=== PATIENT | female | born 1970 | race Caucasian/White ===

== ENCOUNTER → 2023-05-26 15:00 | Outpatient (BNVA) | payer BC, SELFPAY | PROVIDERS: Visit Provider Nurse Practitioner Women's Health | DX: Z01.419 Encounter for gynecological examination (general) (routine) without abnormal findings (principal); Z11.3 Encounter for screening for infections with a predominantly sexual mode of transmission; N91.2 Amenorrhea, unspecified | CPT/HCPCS: 82670; 83001; 84146; 84439; 84443; 86592; 86803; 87340; 87624; 87806 ==

== ENCOUNTER → 2023-06-25 10:00 | Outpatient (BNVA) | payer BC, SELFPAY | PROVIDERS: Visit Provider Nurse Practitioner Women's Health | DX: N91.2 Amenorrhea, unspecified (principal) | CPT/HCPCS: 84443 ==

== ENCOUNTER 2023-07-12 17:08 | Outpatient (CLI) | payer BC, SELFPAY ==
[2023-07-12 18:12] LABS: Follicle Stimulating Hormone 48.5 mIU/mL; Thyroid Stimulating Hormone 9.03 uIU/mL (0.27-4.20)
== END 2023-07-12 17:09 | disposition home or self-care (01) ==
PROVIDERS: PCP Family Medicine; Visit Provider Obstetrics & Gynecology
DX: R87.610 Atypical squamous cells of undetermined significance on cytologic smear of cervix (ASC-US) (principal); R87.810 Cervical high risk human papillomavirus (HPV) DNA test positive
CPT/HCPCS: 36415; 83001; 84443

== ENCOUNTER → 2023-07-15 13:26 | Outpatient (BNVA) | payer BC, SELFPAY | PROVIDERS: PCP Family Medicine; Visit Provider Obstetrics & Gynecology | DX: Z01.818 Encounter for other preprocedural examination (principal); R87.610 Atypical squamous cells of undetermined significance on cytologic smear of cervix (ASC-US); R87.810 Cervical high risk human papillomavirus (HPV) DNA test positive; B37.31 Acute candidiasis of vulva and vagina | CPT/HCPCS: 81025; 88305 ==

== ENCOUNTER → 2024-02-14 15:50 | Outpatient (BNVA) | payer BC, SELFPAY | PROVIDERS: PCP Family Medicine; Visit Provider Podiatrist Foot & Ankle Surgery | DX: L84 Corns and callosities; M21.621 Bunionette of right foot | CPT/HCPCS: 73630 ==

== ENCOUNTER → 2024-07-17 15:05 | Outpatient (BNVA) | payer BC, SELFPAY | PROVIDERS: PCP Family Medicine; Visit Provider Obstetrics & Gynecology | DX: R87.610 Atypical squamous cells of undetermined significance on cytologic smear of cervix (ASC-US) (principal); R87.810 Cervical high risk human papillomavirus (HPV) DNA test positive | CPT/HCPCS: 87624 ==

== ENCOUNTER → 2024-08-11 12:54 | Outpatient (BNVA) | payer BC, SELFPAY | PROVIDERS: PCP Family Medicine; Visit Provider Obstetrics & Gynecology | DX: R87.619 Unspecified abnormal cytological findings in specimens from cervix uteri (principal) | CPT/HCPCS: 81025; 88305 ==

== ENCOUNTER 2024-09-11 05:40 | Day surgery (SDC) | payer BC, SELFPAY ==
[2024-09-11] VITALS (8 sets, daily range): BP systolic 100–119; BP diastolic 69–89; PULSE 83–94; RESP 14–20; TEMP 36.4–36.8; O2SAT 94–100; BMI 22.8
--- NOTE | 2024-09-11 06:20 | P.ANESASSM_ITS ---
Pre-Anesthetic Assessment Height/Weight: Height 5 ft 2 in Weight 125 lb Temp Pulse Resp BP Pulse Ox O2 Del Method 98.3 F 94 18 107/76 100 Room Air 09/11/24 06:06 09/11/24 06:06 09/11/24 06:06 09/11/24 06:06 09/11/24 06:06 09/11/24 06:06 Preop Diagnosis: Right fot tailor's bunion and hammertoe Operation Date: 09/11/24 07:00 Proposed Procedures p Right foot tailor's bunionectomy(Right) - Kolby Shah DPM s foot fifth digit derotational arthroplasty(Right) - Kolby Shah DPM Was Beta Kishan taken within 24 hours: N/A Was Clonidine taken within 24 hours: N/A Last intake: Intake Last Liquid Date 09/10/24 Last Liquid Time 23:30 Last Solid Date 09/10/24 Last Solid Time 23:30 Social Tobacco and No alcohol Exam alert, oriented x 3, clear to auscultation bilaterally and regular rate & rhythm Airway Submandibular: within normal limits Cervical ROM: within normal limits Mallampati: Class I Dentition: full Anesthetic Plan ASA status: 2 Anesthesia: MAC Other: No prior issues with anesthesia in the past NPO since yesterday History of GERD on omeprazole Occasionally vapes nicotine Hypothyroidism on Synthroid METs greater than 4 Plan for MAC anesthetic with local via surgeon Medications/Allergies Home Medications Medication Instructions Recorded Confirmed Last Taken Type multivitamin 1 tab PO DAILY 05/26/23 09/07/24 09/10/24 History omeprazole 20 mg capsule,delayed 20 mg PO DAILY 05/26/23 09/07/24 09/10/24 History release spironolactone 100 mg tablet 100 mg PO DAILY 05/26/23 09/07/24 09/10/24 History fluoxetine 10 mg capsule (Prozac) 10 mg PO DAILY 02/14/24 09/07/24 09/10/24 History levothyroxine 50 mcg capsule 50 mcg PO DAILY 02/14/24 09/07/24 09/10/24 History Allergies Allergy/AdvReac Type Severity Reaction Status Date / Time No Known Allergies Allergy Verified 09/07/24 14:55 [facility] Anesthesia Medical History Acne No pertinent past medical history neghx: htn, dm, thyroid, dvt/pe PCP: none Surgical History H/O tubal ligation (~2002) History of endometrial ablation at age 34 for heavy menses; she still cycled just not has heavy; performed in [place] Previous section (~1998) Family History Father Hypertension CAD (coronary artery disease) Heart disease Hyperlipidemia Other Diabetes Denies family history of Colon cancer Ovarian cancer Breast cancer Family history of premature coronary artery disease Cancer Uterine cancer Thyroid disease Stroke Social History Smoking and tobacco/nicotine status: former use of tobacco/nicotine Data Anesthesia Cardiac Studies: No Data to Display
[2024-09-11] MEDS: gabapentin 300 mg Capsule PO (06:23)
[2024-09-11] MEDS: sodium chloride 0.9% 1,000 ML 30 ML IV (06:24)
[2024-09-11] MEDS: acetaminophen 1,000 MG/100 ML PIGGYBACK 400 MG IV (06:24)
--- NOTE | 2024-09-11 06:41 | W.PM.OPSUD ---
Surgery/Procedure H&P Update DATE OF PROCEDURE: September 11, 2024 DATE H&P PERFORMED: 08/21/24 H&P UPDATE INFORMATION: I have reviewed H&P completed within last 30 days, I have examined patient prior to procedure, No changes to prior documentation and H&P is in [facility] EMR on date indicated PREOP DIAGNOSIS: Right fot tailor's bunion and hammertoe PLANNED PROCEDURE: Operation Date: 09/11/24 07:00 Proposed Procedures p Right foot tailor's bunionectomy(Right) - Kolby Shah DPM s foot fifth digit derotational arthroplasty(Right) - Kolby Shah DPM
[2024-09-11] MEDS: ceFAZolin 2,000 mg SDV 2000 MG IVP (07:11)
[2024-09-11] MEDS: BUPivacaine 0.5% INJ 30 mL XX (07:36)
--- NOTE | 2024-09-11 08:06 | P.OP_ITS ---
Operative Report Date of procedure: September 11, 2024 Pre-op diagnosis: 1. Right foot tailor's bunion 2. Right foot fifth digit hammertoe Post-op diagnosis: Same Post-op findings: Tailor's bunion and fifth digit hammertoe Procedure done: 1. Right foot tailor's bunionectomy CPT 55130 2. Right foot fifth digit derotational arthroplasty CPT 25370 Implants: 0.045 K wire x 1 Pathology: None Surgeon: Kolby Shah DPM Transverse Abdominal Muscle Nurse: Cholo Estimated blood loss: 2 cc 27 minutes Complications: None Findings: See above Procedure: Patient is a 53-year-old female that has a history of painful right foot tailor's bunion and fifth digit hammertoe. The patient has had the aforementioned chief complaint for some time. Conservative treatment measures have been attempted and the patient has opted for surgical intervention at this time. A lengthy discussion regarding the procedure, including risks and complications has been had with the patient and is noted in the recent clinic note. Written and verbal consent have been obtained. All patient questions have been answered to the patient?s satisfaction. No written or verbal guarantees have been given or implied. The patient has been NPO since midnight. The history has been reviewed and the history and physical is current. The signed consent was confirmed and placed in the patient chart. Patient imaging has been reviewed and is consistent with the diagnosis. Under mild sedation, the patient was brought into the operating room and placed on the table in the supine position. IV antibiotics were given by the anesthesia team as preoperative surgical prophylaxis. IV sedation was then performed by the anesthesiateam. Local field block was performed using 0.5% Marcaine plain. A pneumatic tourniquet was then placed about the right ankle. The operative extremity was then prepped and draped in the usual fashion. The extremity was then elevated and exsanguinated before the tourniquet was inflated to 250 mmHg. After inflation, the following procedure was then performed. Attention was directed to the right foot. A percutaneous stab incision was made to the lateral aspect of the fifth metatarsal at the level of the metatarsal neck. Dissection was carried out on the dorsal and plantar aspect of the fifth metatarsal. Next, under fluoroscopic visualization a bur was used to make an osteotomy through the metatarsal neck. The fifth metatarsal head was then translated medially in the transverse plane. Attention was then directed to the fifth digit proximal interphalangeal joint. An elliptical incision was made overlying the proximal interphalangeal joint. Dissection was carried down to the extensor tendon which was transected transversely to expose the proximal interphalangeal joint. Sagittal bone saw was used to remove the head of the proximal phalanx and was passed from the operative field. The site was irrigated with copious amounts of sterile saline. The tendon was reapproximated using 4-0 Vicryl and skin closure was performed with 4-0 nylon. A 0.045 K wire was then driven into the medullary canal of fifth metatarsal to buttress the medial position of the fifth metatarsal head. The tourniquet was let down good hyperemic response was noted to all digits of the right foot. The incision site was dressed with Xeroform, 4 x 4 gauze, Kerlix, Jag before being placed in a cam boot. The patient tolerated the procedure and anesthesia well and without complication. The patient was transported from the operating room to the recovery room with vital signs stable and vascular status intact to all digits of the right foot. The patient was given both written and verbal instructions to remain weightbearing as tolerated in boot to the operative extremity, to keep dressings/splint clean, dry and intact and to take pain medication as directed. The patient will follow-up in the outpatient setting at their scheduled appointment. The patient was discharged with my personal number and was instructed to call if any questions or issues should arise. They were discharged home once anesthesia criteria was met.
--- NOTE | 2024-09-11 09:09 | ANE.PACU2 ---
Inpatient post-anesthesia follow up: Airway intact: Yes Vital signs: Temperature 98.3 F Pulse Rate 83 Respiratory Rate 18 Blood Pressure 100/82 Pulse Oximetry 99 Oxygen Delivery Me thod Room Air Oxygen Flow Rate Fraction of Inspir ed Oxygen Hydration adequate: Yes Nausea and vomiting: No Pain level: 1 Mental status: Baseline
--- NOTE | 2024-09-11 10:12 | XR_ITS ---
WS: [id number] Exam: XR foot RT min 3V* [id number] Date/Time of Exam: 09/11/2024 10:12 AM Reason For Exam: SHWETHA PICS Single anterior posterior image of the RIGHT forefoot is submitted. Osteotomy of the distal fifth met atarsal with axial pin positioned in the proximal aspect of the fifth metatarsal. Osteotomy of the di stal aspect of the fifth proximal phalanx also noted.
== END 2024-09-11 09:09 | disposition home or self-care (01) ==
PROVIDERS: PCP Family Medicine; Visit Provider Podiatrist Foot & Ankle Surgery
PROC: 0QBP0ZZ Excision of Left Metatarsal, Open Approach (ICD-10-PCS; CPT 28110; principal; 2024-09-11 07:00)
PROC: (CPT 28285; 2024-09-11 07:00)
DX: M21.621 Bunionette of right foot (principal); M20.41 Other hammer toe(s) (acquired), right foot; K21.9 Gastro-esophageal reflux disease without esophagitis; E03.9 Hypothyroidism, unspecified; Z87.891 Personal history of nicotine dependence
CPT/HCPCS: 28285; 28308; 73630; 76000; C1713; J0131; J0690; J2250; J2704; J3010; J3490; J7030

== ENCOUNTER → 2024-09-12 13:42 | Outpatient (BNVA) | payer BC, SELFPAY | PROVIDERS: PCP Family Medicine; Visit Provider Podiatrist Foot & Ankle Surgery | DX: M20.41 Other hammer toe(s) (acquired), right foot (principal); M21.621 Bunionette of right foot; Z98.890 Other specified postprocedural states; M79.671 Pain in right foot; L84 Corns and callosities | CPT/HCPCS: 73630 ==

== ENCOUNTER → 2024-09-25 13:53 | Outpatient (BNVA) | payer BC, SELFPAY | PROVIDERS: PCP Family Medicine; Visit Provider Podiatrist Foot & Ankle Surgery | DX: M20.41 Other hammer toe(s) (acquired), right foot (principal); M21.621 Bunionette of right foot; Z98.890 Other specified postprocedural states; L84 Corns and callosities | CPT/HCPCS: 73630 ==

== ENCOUNTER → 2024-10-11 13:58 | Outpatient (BNVA) | payer BC, SELFPAY | PROVIDERS: PCP Family Medicine; Visit Provider Podiatrist Foot & Ankle Surgery | DX: M21.621 Bunionette of right foot (principal); I73.00 Raynaud's syndrome without gangrene; L84 Corns and callosities; M20.41 Other hammer toe(s) (acquired), right foot | CPT/HCPCS: 73630 ==

== ENCOUNTER 2025-04-06 09:16 | Inpatient (IN) | payer BC, MEDICAID, SELFPAY ==
[2025-04-06 09:30] VITALS: BP 127/81; PULSE 69; RESP 17; TEMP 37.1; O2SAT 100; BMI 24.3
--- NOTE | 2025-04-06 09:39 | ED.C_ITS ---
HPI - Psych 2 General: Chief Complaint: Psychiatric Symptoms Stated Complaint: MHE SI Time Seen by Provider: 04/06/25 09:18 History of Present Illness: 54-year-old female presents to the [facility] room with complaint of suicidal thoughts and depression. She has no specific plan she reports this progressively worsening feeling of hopelessness she is extremely distraught and tearful she moved here has little to no family support in the area all of her children live at some distance from here she has not been able to establish herself here she had difficulty with employment as well and is getting very frustrated to the point that she is considering harming herself. She has been on buspirone and fluoxetine but she stopped all of these occasions because she did not feel they were helpful. To this point she has not done anything to advance lethality. Related Data Home Medications ?Medication ?Instructions ?Recorded ?Confirmed multivitamin 1 tab PO DAILY 05/26/2301/26 omeprazole 20 mg capsule,delayed 20 mg PO DAILY 04/06/25 release spironolactone 100 mg tablet 100 mg PO DAILY 05/26/23 04/06/25 fluoxetine 10 mg capsule (Prozac) 10 mg PO DAILY 02/1304/06/25 levothyroxine 50 mcg capsule 50 mcg PO DAILY 02/14/24 04/06/25 Previous Rx's ?Medication ?Instructions ?Recorded nitroglycerin 2 % transdermal See Rx Instructions .Rou te 10/24/24 ointment (Nitro-Bid) .COMPLEX #30 grams Allergies Allergy/AdvReac Type Severity Reaction Status Date / Time amphetamine (From Adderall) Allergy ADR-Depress Verified 04/06/25 09:35 ion buspirone Allergy ADR-Depress Verified 04/06/25 09:35 ion cyclobenzaprine Allergy ADR-Depress Verified 04/06/25 09:35 ion dextroamphetamine (From Allergy ADR-Depress Verified 04/06/25 09:35 Adderall) ion Review of Systems 2 Const: Denies: fever(s) or chills Card: Denies: chest pain Resp: Denies: dyspnea GI: Denies: abdominal pain : Denies: dysuria, urinary frequency or urinary urgency Musc: Denies: neck pain or back pain Skin/Breast: Denies: rash PFS ED 2 PFSH: Medical History Acne No pertinent past medical history neghx: htn, dm, thyroid, dvt/pe PCP: none Surgical History H/O tubal ligation (~2002) History of endometrial ablation at age 34 for heavy menses; she still cycled just not has heavy; performed in [place] Previous section (~1998) Family History Father Hypertension CAD (coronary artery disease) Heart disease Hyperlipidemia Other Diabetes Denies family history of Colon cancer Ovarian cancer Breast cancer Family history of premature coronary artery disease Cancer Uterine cancer Thyroid disease Stroke Social History Smoking and tobacco/nicotine status: former use of tobacco/nicotine Physical Exam 2 Const: GENERAL APPEARANCE: cooperative ORIENTATION/CONSCIOUSNESS: Yes awake, Yes oriented to person, Yes oriented to place and Yes oriented to time HENMT: COMMON NORMALS: normocephalic, atraumatic and hearing grossly normal bilaterally HEAD & SCALP: normocephalic and atraumatic Resp: COMMON NORMALS: normal respiratory effort, No retractions, No use of accessory muscles and clear to auscultation bilaterally AUSCULTATION: clear to auscultation bilaterally Cardio: COMMON NORMALS: regular rate, regular rhythm and No murmurs present (Cardio) RATE: regular rate RHYTHM: regular rhythm GI: COMMON NORMALS: Soft to palpation and No hepatosplenomegaly present A USCULTATION: Yes normoactive bowel sounds PALPATION: Yes Soft to palpation, No Tenderness to palpation present (GI), No Guarding due to palpation present (GI) and Yes No hepatosplenomegaly present Extremity: COMMON NORMALS: normal to inspection, capillary refill normal, no clubbing, cyanosis or edema, no calf tenderness and no pedal edema Neuro: SENSORIUM/ORIENTATION: Yes oriented to person, Yes oriented to place and Yes oriented to time Psych: COMMON NORMALS: cooperative ACTIVITY/MOTOR BEHAVIOR: Yes Avoids eye contact (attititude/behavior) SPEECH: Yes slow MOOD & AFFECT: Yes depressed mood, Yes apathetic and Yes tearful THOUGHT CONTENT: Yes Suicidality present Skin: COMMON NORMALS: no rashes or lesions noted GENERAL SKIN EXAM: no rashes or lesions noted Course 2 Vital Signs: Vital signs: Vital Signs Temperature 98.0 F 04/08/25 06:00 Pulse Rate 79 04/08/25 06:00 Respiratory Rate 19 H 04/08/25 06:00 Blood Pressure 96/63 04/08/25 06:00 Pulse Oximetry 99 04/08/25 06:00 Oxygen Delivery Me thod Room Air 04/08/25 06:00 MDM - Psych Medical Decision Making Patient is having active suicidal thoughts is not against the pellety yet she has very poor social situation has been off all her medicines and she will require inpatient care. Discussed with on-call psychiatry. Patient placed on 96-hour hold orders. Medical Records I reviewed the patient's medical records. Lab Data I reviewed the patient's lab results. 04/06/25 09:30 04/06/25 09:30 Laboratory Results WBC 4.27 10^3/uL (3.29-11.43) 04/06/25 09:30 RBC 4.30 10^6/uL (3.85-5.65) 04/06/25 09:30 Hgb 13.70 g/dL (11.27-16.99) 04/06/25 09:30 Hct 40.1 % (36-47) 04/06/25 09:30 MCV 93.3 fl (85-98) 04/06/25 09:30 MCH 31.9 pg (27-33) 04/06/25 09:30 MCHC 34.2 g/dL (30-55) 04/06/25 09:30 RDW 11.9 % (12.1-15.1) L 04/06/25 09:30 Plt Count 352 10^3/cmm (157-399) 04/06/25 09:30 MPV 9.5 fL (7.4-10.4) 04/06/25 09:30 Neut % (Auto) 53.9 % 04/06/25 09:30 Lymph % (Auto) 33.7 % 04/06/25 09:30 [place] % (Auto) 7.7 % 04/06/25 09:30 Eos % (Auto) 3.3 % 04/06/25 09:30 Baso % (Auto) 1.2 % 04/06/25 09:30 Neut # (Auto) 2.30 10^3/uL (1.8-7.7) 04/06/25 09:30 Lymph # (Auto) 1.4 10^3/uL (0.8-4.8) 04/06/25 09:30 [place] # (Auto) 0.3 10^3/uL (0.2-0.9) 04/06/25 09:30 Eos # (Auto) 0.1 10^3/uL (0.0-0.8) 04/06/25 09:30 Baso # (Auto) 0.1 10^3/uL (0.0-0.1) 04/06/25 09:30 Nucleated RBC % (auto) 0 % 04/06/25 09:30 Nucleated RBCs # 0.0 /100WBC 04/06/25 09:30 Sodium 131 mmol/L (136-145) L 04/06/25 09:30 Potassium 4.6 mmol/L (3.5-5.1) 04/06/25 09:30 Chloride 95 mmol/L (98-107) L 04/06/25 09:30 Carbon Dioxide 25 mmol/L (22-29) 04/06/25 09:30 Anion Gap 15.6 (5-19) 04/06/25 09:30 BUN 9 mg/dL (6-20) 04/06/25 09:30 Creatinine 0.7 mg/dL (0.5-0.9) 04/06/25 09:30 GFR Calculation 87.2 mL/min (90-130) L 04/06/25 09:30 Glucose 84 mg/dL (65-115) 04/06/25 09:30 Calculated Osmolality 270 mOsm/kg (285-295) L 04/06/25 09:30 Calcium 9.5 mg/dL (8.5-10.5) 04/06/25 09:30 Total Bilirubin 0.3 mg/dL (0.15-1.2) 04/06/25 09:30 AST 23 U/L (0-32) 04/06/25 09:30 ALT 24 U/L (0-33) 04/06/25 09:30 Alkaline Phosphatase 72 U/L (35-105) 04/06/25 09:30 Total Protein 7.3 g/dL (6.6-8.7) 04/06/25 09:30 Albumin 4.3 g/dL (3.5-5.2) 04/06/25 09:30 Globulin 3.0 g/dL (1.3-4.6) 04/06/25 09:30 Salicylates < 0.3 mg/dL (3-10) L 04/06/25 09:30 Acetaminophen < 5.0 ug/mL (10-30) L 04/06/25 09:30 No radiology studies performed this visit Discharge Plan Discharge Patient Disposition: Admitted As Inpatient Admit Provider: Tray Mg Clinical Impression: Suicidal ideation, Depression Condition: Stable Coding Level of Care Code ED Cad Design Engineer for Meghann Washington
[2025-04-06 09:45] LABS: Hematocrit 40.1 % (36-47); Hemoglobin 13.70 g/dL (11.27-16.99); Mean Corpuscular HGB Conc 34.2 g/dL (30-55); Mean Corpuscular Hemoglobin 31.9 pg (27-33); Mean Corpuscular Volume 93.3 fl (85-98); Nucleated Red Blood Cells % 0 %; Platelet Count 352 10^3/cmm (157-399); Red Blood Count 4.30 10^6/uL (3.85-5.65); White Blood Count 4.27 10^3/uL (3.29-11.43)
[2025-04-06 09:53] LABS: Alanine Aminotransferase 24 U/L (0-33); Albumin Level 4.3 g/dL (3.5-5.2); Alkaline Phosphatase 72 U/L (35-105); Anion Gap 15.6 (5-19); Aspartate Amino Transferase 23 U/L (0-32); Blood Urea Nitrogen 9 mg/dL (6-20); Calcium 9.5 mg/dL (8.5-10.5); Carbon Dioxide 25 mmol/L (22-29); Chloride 95 mmol/L (98-107); Creatinine Clr Calc Pharmacy 78.5987; Globulin 3.0 g/dL (1.3-4.6); Glucose 84 mg/dL (65-115); Osmolality Calculated 270 mOsm/kg (285-295); Potassium 4.6 mmol/L (3.5-5.1); Sodium 131 mmol/L (136-145); Total Protein 7.3 g/dL (6.6-8.7)
[2025-04-06 10:04] LABS: Acetaminophen < 5.0 ug/mL (10-30); Salicylate < 0.3 mg/dL (3-10)
[2025-04-06 11:12] VITALS: BP 132/79; PULSE 70; O2SAT 97
[2025-04-06 12:49] VITALS: BP 117/75; PULSE 70; RESP 17; TEMP 37; O2SAT 100
[2025-04-06 14:00] VITALS: RESP 16
[2025-04-06] MEDS: artificial tears Op Soln 15 mL Btl 1 DROP EYE-BOTH (15:08)
[2025-04-06 20:16] VITALS: BP 98/57; PULSE 73; RESP 17; TEMP 36.6; O2SAT 100
[2025-04-07 06:00] VITALS: BP 93/61; PULSE 66; RESP 18; TEMP 36.4; O2SAT 98
--- NOTE | 2025-04-07 09:43 | P.NPUHP_ITS ---
Providers/Chief Complaint 2 Admitting Physician: Tray Mg MD Primary Care Provider: Bridget Sheridan MD Chief Complaint: MHE SI HPI NPU History of Present Illness Tresa Allen is a 54 year old female with no previous history of inpatient psychiatric hospitalization who arrived here today with complaints of having suicidal ideation with no active plan. The patient was admitted onto the neuropsychiatric unit for further evaluation and treatment. She reports that she has had multiple episodes of depression in her lifetime beginning approximately 26 years ago after the of her first child. She reports that currently she has had increased feelings of hopelessness and increased loneliness. She denies any history of self-injurious behavior. She reports that she has problems with controlling her worry and often has significant anxiety that often feels out of control. She reports that she has been more tearful and reports that she has thoughts of not wanting to live any longer. She had reported that this latest episode of depression began in October of this year as she had stated that she had switched her job while reporting that she had been bullied there. She reports that she had moved to [place] approximately 2 years ago away from her lifetime home of [facility]. She reports having difficulties with falling asleep and reports that she often feels tired and not rested in the morning. She reports that she often becomes upset and overwhelmed. She reports that she is having significant problems with feeling achy and reports having problems chronically with concentration. She reports her anxiety has been worse in the presence of her depression. She reports at least 5 previous episodes of depression in her lifetime. The patient had provided a list of her previous psychotropic medications and reported that she was extremely sensitive to medications. She states that her Prozac has been steady at 10 mg daily but when she went up to 20 mg she felt much worse after taking it for 1 week. She reports being easily distracted. She reports that she feels as if her depression is getting worse. She denies any history of alphonso she denies any history of psychosis. She reports having current financial stressors from working part-time. Inpatient psychiatric history: None Outpatient psychiatric history: She reports that she had gone to [facility] for intensive outpatient treatment in the past. She had reported a history of numerous medication trials including Effexor, lamotrigine, Zoloft, Prozac, Adderall, Vyvanse, and Concerta. She reports that most of her medication management for mental health has been managed by her primary care physicians at the time. She has reported attending psych[facility] before [facility] the [facility] and privately. Substance abuse history: She denies any substance use other than occasional use of Sativa THC. Medical history: Unspecified back pain, vitamin D deficiency, history of iron deficiency anemia, hypothyroidism Surgical history: Endometrial ablation, history of tubal ligation and Allergies: Buspirone cyclobenzaprine and Adderall all described as having caused acute dysphoria and depression. Legal history: None history: None Family psychiatric history: Polysubstance abuse?mother, depression?father, depression?sister Social history: Patient was born in [facility] and raised there by her biological parents who when the patient was 16. She had reported having an unhappy childhood but did not endorse any history of sexual physical or emotional abuse. She reports having 2 siblings. She reports no problems with learning in her childhood. She graduated high school but did not attend college. She states twice and is currently . She reports she has been and that she had worked in [employer] through the [employer] system for nearly 29 years until an incident had occurred in local [place] in [place] that led to her leaving there. She currently lives in [facility] having moved here 2 years ago. Meds NPU Home Medications ?Medication ?Instructions ?Recorded ?Confirmed ?Last Taken ?Type multivitamin 1 tab PO DAILY 05/26/23 07/01/2609/10/24 History omeprazole 20 mg capsule,delayed 20 mg PO DAILY 04/06/25 04/05/25 History release spironolactone 100 mg tablet 100 mg PO DAILY 05/26/23 04/06/25 04/05/25 History fluoxetine 10 mg capsule (Prozac) 10 mg PO DAILY 02/1304/06/25 04/05/25 History levothyroxine 50 mcg capsule 50 mcg PO DAILY 02/14/24 04/06/25 04/05/25 History nitroglycerin 2 % transdermal See Rx Instructions .Rou te 10/24/24 04/06/25 Unknown Rx ointment (Nitro-Bid) .COMPLEX #30 grams Allergies Allergy/AdvReac Type Severity Reaction Status Date / Time amphetamine (From Adderall) Allergy ADR-Depress Verified 04/06/25 09:35 ion buspirone Allergy ADR-Depress Verified 04/06/25 09:35 ion cyclobenzaprine Allergy ADR-Depress Verified 04/06/25 09:35 ion dextroamphetamine (From Allergy ADR-Depress Verified 04/06/25 09:35 Adderall) ion PFSH NPU 2 PFSH: Medical History Acne No pertinent past medical history neghx: htn, dm, thyroid, dvt/pe PCP: none Surgical History H/O tubal ligation (~2002) History of endometrial ablation at age 34 for heavy menses; she still cycled just not has heavy; performed in [place] Previous section (~1998) Family History Father Hypertension CAD (coronary artery disease) Heart disease Hyperlipidemia Other Diabetes Denies family history of Colon cancer Ovarian cancer Breast cancer Family history of premature coronary artery disease Cancer Uterine cancer Thyroid disease Stroke Social History Smoking and tobacco/nicotine status: former use of tobacco/nicotine Mental Status Exam 2 MSE Comments: She is a casually dressed female who appears her stated age with fair eye contact and normal gait. There was no evidence of any abnormal involuntary motor movements, tics, or tremors appreciated. There was evidence of moderate psychomotor retardation. Her speech was normal in regards to rate rhythm and prosody. Her mood was described as depressed. Her affect was mood congruent and restricted in range. Her thought process is linear logical and goal- directed. Her thought content revealed no active homicidal ideation with passive suicidal ideation with no active suicidal plan at this time but some evidence of having increased thoughts of not wanting to be alive. She was alert and oriented to person, place, time, and situation. There was no evidence of delusional thinking. She did not appear to be responding to internal stimuli. There was a sense of overall hopelessness in her conversation. Her attention span at times appeared poor. Her insight is limited. Her judgment is poor. Her impulse control appeared guarded. Vitals/I&O/Wt Last Vital Signs Temp 97.5 F L 04/07/25 06:00 Pulse 66 04/07/25 06:00 Resp 18 04/07/25 06:00 BP 93/61 04/07/25 06:00 Pulse Ox 98 04/07/25 06:00 O2 Del Method Room Air 04/07/25 06:00 Weight last 48 hrs Weight 60.328 kg Data NPU 04/06/25 09:30 04/06/25 09:30 A&P Assessment and plan (1) Major depressive disorder, recurrent severe without psychotic features: (2) SHELLI (generalized anxiety disorder): (3) Raynauds disease: Plan 54-year-old white female who presents with generalized anxiety disorder and worsening depression with a history of sensitivity to medications along with increased medical problems. Her medications were reviewed and it did not appear that she had previously been on Cymbalta and given her problems with Prozac it appears that it would be prudent to try Cymbalta here. #1.? Engage patient in individual milieu and group therapy. #2?? Trial of cymbalta at 20mg daily, discontinue Prozac. #3???Labs to evaluate medical causes of depression, including CMP, TSH, Vit D? #4?? TO-15 minute checks? #5?? Will attempt to gather collateral information PDMP PDMP Reviewed: Not Reviewed Involuntary Hold Information 2 Hold Status: Legal Status: 96 Hour Hold Date/Time Hold Expires: 9 6^04/13/25@0001 Attestations NPU 2 Medical Necessity Statement*: Inpatient hospitalization is medically necessary and deemed to ?be ?the clinically appropriate intervention ?at this time.? We will monitor/initiate medications and make changes as indicated.? The patient will be hospitalized for at least two midnights. The patient?s likely length of stay 7-10 days. Coding Level of Care Code Acute Code for Chg Fwd Diagnoses Major depressive disorder, recurrent severe without psychotic features F33.2 SHELLI (generalized anxiety disorder) F41.1 Raynauds disease I73.00
[2025-04-07 14:00] VITALS: BP 98/66; PULSE 67; RESP 16; TEMP 36.8; O2SAT 99
[2025-04-07 21:58] VITALS: BP 99/62; PULSE 71; RESP 18; TEMP 36.7; O2SAT 100
[2025-04-08 06:00] VITALS: BP 96/63; PULSE 79; RESP 19; TEMP 36.7; O2SAT 99; BMI 24.9
--- NOTE | 2025-04-08 12:57 | P.NPUPN_ITS ---
Subjective NPU 2 Subjective: 54-year-old female admitted with suicida l ideation and worsening depression along with generalized anxiety disorder. The patient reported fleeting thoughts of suicide. She reported no side effects from her Cymbalta at this time. She had reported history of multiple trials for managing depression of various medications without success. She had reported extreme sensitivity to these medications. She had continued to report having chronic problems with controlling her worry. She reported that she had some difficulties with falling asleep. She had reported problems with concentration still. She continued to report feeling hopeless and reported low motivation and low energy. She had acknowledged having some feelings of guilt regarding not supporting and providing for her children better. Mental Status Exam 2 MSE Comments: She is a casually dressed female who appears her stated age with fair eye contact and normal gait. There was no evidence of any abnormal involuntary motor movements, tics, or tremors appreciated. There was evidence of moderate psychomotor retardation. Her speech was normal in regards to rate rhythm and prosody. Her mood was described as depressed. Her affect was restricted. Her thought process is linear, logical and goal-directed. Her thought content revealed no active homicidal ideation with passive suicidal ideation with no active suicidal plan at this time but some evidence of having increased thoughts of not wanting to be alive. She was alert and oriented to person, place, time, and situation. There was no evidence of delusional thinking. She did not appear to be responding to internal stimuli. There was a sense of overall sense of hopelessness, and worthlessness. Her attention span at times appeared poor. Her insight is limited. Her judgment is poor. Her impulse control appeared guarded. Vitals/I&O/Wt Last Vital Signs Temp 98.0 F 04/08/25 06:00 Pulse 79 04/08/25 06:00 Resp 19 H 04/08/25 06:00 BP 96/63 04/08/25 06:00 Pulse Ox 99 04/08/25 06:00 O2 Del Method Room Air 04/08/25 06:00 Weight last 48 hrs Weight 61.745 kg Data NPU 04/06/25 09:30 04/06/25 09:30 A&P Assessment and plan (1) Major depressive disorder, recurrent severe without psychotic features: (2) SHELLI (generalized anxiety disorder): (3) Raynauds disease: Plan 54-year-old white female who presents with generalized anxiety disorder and worsening depression with a history of sensitivity to medications along with increased medical problems. Her medications were reviewed and it did not appear that she had previously been on Cymbalta and given her problems with Prozac it appears that it would be prudent to try Cymbalta here. #1.? Engage patient in individual milieu and group therapy. #2?? Increase cymbalta to 30mg daily. #3???Labs to evaluate medical causes of depression, including CMP, TSH, Vit D? #4?? TO-15 minute checks? #5?? Will attempt to gather collateral information PDMP PDMP Reviewed: Not Reviewed Involuntary Hold Information 2 Hold Status: Legal Status: 96 Hour Hold Date/Time Hold Expires: 9 6^04/13/25@0001 Attestations NPU 2 Medical Necessity Statement*: Inpatient hospitalization is medically necessary and deemed to ?be ?the clinically appropriate intervention ?at this time.? We will monitor/initiate medications and make changes as indicated.? The patient will be hospitalized for at least two midnights. The patient?s likely length of stay 3-5 days. Coding Level of Care Code Acute Code for Chg Fwd Diagnoses Major depressive disorder, recurrent severe without psychotic features F33.2 SHELLI (generalized anxiety disorder) F41.1 Raynauds disease I73.00
[2025-04-08 14:00] VITALS: BP 92/59; PULSE 67; RESP 16; TEMP 36.8; O2SAT 100
[2025-04-08 20:45] VITALS: BP 145/94; PULSE 116; RESP 19; TEMP 36.6; O2SAT 95
[2025-04-09 06:00] VITALS: BP 103/64; PULSE 79; RESP 18; TEMP 36.7; O2SAT 98
--- NOTE | 2025-04-09 09:33 | PC.NURSE ---
Patient c/o pain in her back 04/12. Tylenol and Ibuprofen are currently ordered for mild pain, however patient states that her pain is normally this high and she doesn't like to take any other medications for it. She states that geriatric personal care aide and massage therapy help the most, however she hasn't been able to go recently. I offered to speak with the physician about ordering something different, however she declines at this time and states she would prefer to take the Tylenol and Ibuprofen.
[2025-04-09 14:00] VITALS: BP 106/72; PULSE 64; RESP 16; TEMP 36.6; O2SAT 100
--- NOTE | 2025-04-09 17:38 | P.NPUPN_ITS ---
Subjective NPU 2 Subjective: 54-year-old female admitted with suicida l ideation and worsening depression along with generalized anxiety disorder. The patient had reported feeling more tired. She had reported continued problems with motivation and energy. Patient had endorsed continued feelings of hopelessness. She reported struggles with tolerating medications. She had reported that she had felt overwhelmed at times. She had been able to attend groups. She had reported having struggles with concentration. She continued to report having suicidal thoughts. Mental Status Exam 2 MSE Comments: She is a casually dressed female who appears her stated age with fair eye contact and normal gait who was pacing. There was no evidence of any abnormal involuntary motor movements, tics, or tremors appreciated. There was evidence of moderate psychomotor retardation. Her speech was normal in regards to rate rhythm and prosody. Her mood was described as depressed. Her affect was restricted. Her thought process is linear, logical and goal-directed. Her thought content revealed no active homicidal ideation with passive suicidal ideation with no active suicidal plan at this time but some evidence of having increased thoughts of not wanting to be alive. She was alert and oriented to person, place, time, and situation. There was no evidence of delusional thinking. She did not appear to be responding to internal stimuli. There was a sense of overall sense of hopelessness, and worthlessness. Her attention span at times appeared poor. Her insight is limited. Her judgment is poor. Her impulse control appeared guarded. Vitals/I&O/Wt Last Vital Signs Temp 98 F 04/09/25 14:00 Pulse 64 04/09/25 14:00 Resp 16 04/09/25 14:00 BP 106/72 04/09/25 14:00 Pulse Ox 100 04/09/25 14:00 O2 Del Method Room Air 04/09/25 06:00 Weight last 48 hrs Weight 61.745 kg Data NPU 04/06/25 09:30 04/06/25 09:30 A&P Assessment and plan (1) Major depressive disorder, recurrent severe without psychotic features: (2) SHELLI (generalized anxiety disorder): (3) Raynauds disease: Plan 54-year-old white female who presents with generalized anxiety disorder and worsening depression with a history of sensitivity to medications along with increased medical problems. Her medications were reviewed and it did not appear that she had previously been on Cymbalta and given her problems with Prozac it appears that it would be prudent to try Cymbalta here. #1.? Engage patient in individual milieu and group therapy. #2?? Continue cymbalta at 30mg daily. Add Ritalin 5mg bid today. Decrease baclofen to 5mg bid, secondary to sedation. #3???Labs to evaluate medical causes of depression, including CMP, TSH, Vit D? #4?? TO-15 minute checks? #5?? Will attempt to gather collateral information PDMP PDMP Reviewed: Not Reviewed Involuntary Hold Information 2 Hold Status: Legal Status: 96 Hour Hold Date/Time Hold Expires: 04/13/25@ 00:01 Attestations NPU 2 Medical Necessity Statement*: Inpatient hospitalization is medically necessary and deemed to ?be ?the clinically appropriate intervention ?at this time.? We will monitor/initiate medications and make changes as indicated.? The patient?s likely length of stay 3-5 days. Coding Level of Care Code Acute Code for Chg Fwd Diagnoses Major depressive disorder, recurrent severe without psychotic features F33.2 SHELLI (generalized anxiety disorder) F41.1 Raynauds disease I73.00
[2025-04-09 20:21] VITALS: BP 110/75; PULSE 70; RESP 16; TEMP 36.6; O2SAT 100
[2025-04-09 21:21] VITALS: BP 110/75; PULSE 70; RESP 16; TEMP 36.6; O2SAT 100
[2025-04-10] MEDS: artificial tears Op Soln 15 mL Btl 1 DROP EYE-BOTH (05:50)
[2025-04-10 06:00] VITALS: BP 106/73; PULSE 61; RESP 14; TEMP 36.8; O2SAT 92
--- NOTE | 2025-04-10 12:42 | P.NPUPN_ITS ---
Subjective NPU 2 Subjective: 54-year-old female admitted with suicida l ideation and worsening depression along with generalized anxiety disorder. The patient continued to struggle with anxiety and depression. She continued endorse some hopelessness then reported that she did not know if she could take much more of her depression. She reported that she felt stuck . She reported continued lack of motivation and reported low energy. The patient had reported interest in considering transcranial magnetic stimulation. She had again reported a history of significant problems with sustaining attention as well. She was able to attend groups. She had reported that she struggled with ruminating about past mistakes. She continued to report suicidal thoughts with no active plan. Mental Status Exam 2 MSE Comments: She is a casually dressed female who appears her stated age with fair eye contact and normal gait who was pacing. There was no evidence of any abnormal involuntary motor movements, tics, or tremors appreciated. There was evidence of moderate psychomotor retardation. Her speech was normal in regards to rate rhythm and prosody. Her mood was described as stuck. Her affect was restricted. Her thought process is linear, logical and goal-directed. Her thought content revealed no active homicidal ideation with passive suicidal ideation with no active suicidal plan at this time but some evidence of having increased thoughts of not wanting to be alive. She was alert and oriented to person, place, time, and situation. There was no evidence of delusional thinking. She did not appear to be responding to internal stimuli. There was a sense of overall sense of hopelessness, and worthlessness. Her attention span at times appeared poor. Her insight is limited. Her judgment is poor. Her impulse control appeared guarded. Vitals/I&O/Wt Last Vital Signs Temp 98.2 F 04/10/25 06:00 Pulse 61 04/10/25 06:00 Resp 14 04/10/25 06:00 BP 106/73 04/10/25 06:00 Pulse Ox 92 04/10/25 06:00 O2 Del Method Room Air 04/10/25 06:00 Data NPU 04/06/25 09:30 04/06/25 09:30 A&P Assessment and plan 1. Major depressive disorder, recurrent severe without psychotic features: 2. SHELLI (generalized anxiety disorder): 3. Raynauds disease: Plan: 54-year-old white female who presents with generalized anxiety disorder and worsening depression with a history of sensitivity to medications along with increased medical problems. Her medications were reviewed and it did not appear that she had previously been on Cymbalta and given her problems with Prozac it appears that it would be prudent to try Cymbalta here. #1.? Engage patient in individual milieu and group therapy. #2?? Continue cymbalta at 30mg daily. Add Ritalin 5mg bid today. Decrease baclofen to 5mg bid, secondary to sedation. #3???Labs to evaluate medical causes of depression, including CMP, CBC with diff, Vit D? #4?? TO-15 minute checks? #5?? Will attempt to gather collateral information PDMP PDMP Reviewed: Not Reviewed Involuntary Hold Information 2 Hold Status: Legal Status: 96 Hour Hold Date/Time Hold Expires: 04/13/25@ 00:01 Attestations NPU 2 Medical Necessity Statement*: Inpatient hospitalization is medically necessary and deemed to ?be ?the clinically appropriate intervention ?at this time.? We will monitor/initiate medications and make changes as indicated.? The patient?s likely length of stay 3-5 days. Coding Level of Care Code Acute Code for Chg Fwd Diagnoses Major depressive disorder, recurrent severe without psychotic features F33.2 SHELLI (generalized anxiety disorder) F41.1 Raynauds disease I73.00
[2025-04-10 14:00] VITALS: BP 109/73; PULSE 105; RESP 16; TEMP 36.9; O2SAT 100
[2025-04-10 19:46] VITALS: BP 109/71; PULSE 76; RESP 18; TEMP 36.7; O2SAT 100
[2025-04-11 06:00] VITALS: BP 100/60; PULSE 64; RESP 16; O2SAT 100
[2025-04-11 07:05] LABS: Hematocrit 39.5 % (36-47); Hemoglobin 13.10 g/dL (11.27-16.99); Mean Corpuscular HGB Conc 33.2 g/dL (30-55); Mean Corpuscular Hemoglobin 31.6 pg (27-33); Mean Corpuscular Volume 95.2 fl (85-98); Nucleated Red Blood Cells % 0 %; Platelet Count 246 10^3/cmm (157-399); Red Blood Count 4.15 10^6/uL (3.85-5.65); White Blood Count 3.71 10^3/uL (3.29-11.43)
[2025-04-11 07:28] LABS: Alanine Aminotransferase 19 U/L (0-33); Albumin Level 4.0 g/dL (3.5-5.2); Alkaline Phosphatase 61 U/L (35-105); Anion Gap 13.5 (5-19); Aspartate Amino Transferase 17 U/L (0-32); Blood Urea Nitrogen 8 mg/dL (6-20); Calcium 9.3 mg/dL (8.5-10.5); Carbon Dioxide 28 mmol/L (22-29); Chloride 103 mmol/L (98-107); Creatinine Clr Calc Pharmacy 79.4208; Globulin 2.5 g/dL (1.3-4.6); Glucose 78 mg/dL (65-115); Osmolality Calculated 287 mOsm/kg (285-295); Potassium 4.5 mmol/L (3.5-5.1); Sodium 140 mmol/L (136-145); Total Protein 6.5 g/dL (6.6-8.7)
[2025-04-11 14:00] VITALS: BP 88/59; PULSE 88; RESP 16; TEMP 37; O2SAT 100
--- NOTE | 2025-04-11 16:06 | P.NPUPN_ITS ---
Subjective NPU 2 Subjective: Patient presented today reporting that things are going all right. We discussed her plan moving forward of how she can manage her situation. She denied any current lethality and was able to contract for safety. We discussed the likelihood of discharge tomorrow. She denied any side effects to her medication. Mental Status Exam 2 MSE Comments: She is a casually dressed female who appears her stated age with fair eye contact and normal gait who was pacing. There was no evidence of any abnormal involuntary motor movements, tics, or tremors appreciated. There was evidence of moderate psychomotor retardation. Her speech was normal in regards to rate rhythm and prosody. Her mood was described as stuck. Her affect was restricted. Her thought process is linear, logical and goal-directed. Her thought content revealed no active homicidal ideation with passive suicidal ideation with no active suicidal plan at this time but some evidence of having increased thoughts of not wanting to be alive. She was alert and oriented to person, place, time, and situation. There was no evidence of delusional thinking. She did not appear to be responding to internal stimuli. There was a sense of overall sense of hopelessness, and worthlessness. Her attention span at times appeared poor. Her insight is limited. Her judgment is poor. Her impulse control appeared guarded. Vitals/I&O/Wt Last Vital Signs Temp 98.6 F 04/11/25 14:00 Pulse 88 04/11/25 14:00 Resp 16 04/11/25 14:00 BP 88/59 04/11/25 14:00 Pulse Ox 100 04/11/25 14:00 O2 Del Method Room Air 04/11/25 14:00 Data NPU 04/11/25 06:54 04/11/25 06:54 A&P Assessment and plan 1. Major depressive disorder, recurrent severe without psychotic features: 2. SHELLI (generalized anxiety disorder): 3. Raynauds disease: Plan: 54-year-old white female who presents with generalized anxiety disorder and worsening depression with a history of sensitivity to medications along with increased medical problems. Her medications were reviewed and it did not appear that she had previously been on Cymbalta and given her problems with Prozac it appears that it would be prudent to try Cymbalta here. #1.? Engage patient in individual milieu and group therapy. #2?? Continue cymbalta at 30mg daily. Add Ritalin 5mg bid today. Decrease baclofen to 5mg bid, secondary to sedation. #3???Labs to evaluate medical causes of depression, including CMP, CBC with diff, Vit D? #4?? TO-15 minute checks? #5?? Will attempt to gather collateral information PDMP PDMP Reviewed: Not Reviewed Involuntary Hold Information 2 Hold Status: Legal Status: 96 Hour Hold Date/Time Hold Expires: 04/13/25@ 00:01 Attestations NPU 2 Medical Necessity Statement*: Inpatient hospitalization is medically necessary and?the clinically appropriate intervention?at this time.? We will monitor/initiate medications and make changes as indicated.? The patient?s likely length of stay 1-2 days. Coding Level of Care Code Acute Code for Chg Fwd Diagnoses Major depressive disorder, recurrent severe without psychotic features F33.2 SHELLI (generalized anxiety disorder) F41.1 Raynauds disease I73.00
[2025-04-11 19:43] VITALS: BP 92/60; PULSE 76; RESP 16; TEMP 36.9; O2SAT 99
[2025-04-11] MEDS: sennosides-docusate Tablet 1 TAB PO (20:16)
[2025-04-12] MEDS: artificial tears Op Soln 15 mL Btl 1 DROP EYE-BOTH (04:42)
[2025-04-12 06:00] VITALS: BP 90/58; PULSE 70; RESP 16; TEMP 37.2; O2SAT 97
--- NOTE | 2025-04-12 10:59 | W.PM.NPUDCS ---
Diagnoses at Discharge Discharge Diagnosis 1. Major depressive disorder, recurrent severe without psychotic features: 2. SHELLI (generalized anxiety disorder): 3. Raynauds disease: Reason for Visit Reason for Visit: MHE SI Brief History: History of Present Illness Tresa Allen is a 54 year old female with no previous history of inpatient psychiatric hospitalization who arrived here today with complaints of having suicidal ideation with no active plan. The patient was admitted onto the neuropsychiatric unit for further evaluation and treatment. She reports that she has had multiple episodes of depression in her lifetime beginning approximately 26 years ago after the of her first child. She reports that currently she has had increased feelings of hopelessness and increased loneliness. She denies any history of self-injurious behavior. She reports that she has problems with controlling her worry and often has significant anxiety that often feels out of control. She reports that she has been more tearful and reports that she has thoughts of not wanting to live any longer. She had reported that this latest episode of depression began in October of this year as she had stated that she had switched her job while reporting that she had been bullied there. She reports that she had moved to [place] approximately 2 years ago away from her lifetime home of [facility]. She reports having difficulties with falling asleep and reports that she often feels tired and not rested in the morning. She reports that she often becomes upset and overwhelmed. She reports that she is having significant problems with feeling achy and reports having problems chronically with concentration. She reports her anxiety has been worse in the presence of her depression. She reports at least 5 previous episodes of depression in her lifetime. The patient had provided a list of her previous psychotropic medications and reported that she was extremely sensitive to medications. She states that her Prozac has been steady at 10 mg daily but when she went up to 20 mg she felt much worse after taking it for 1 week. She reports being easily distracted. She reports that she feels as if her depression is getting worse. She denies any history of alphonso she denies any history of psychosis. She reports having current financial stressors from working part-time. Inpatient psychiatric history: None Outpatient psychiatric history: She reports that she had gone to [facility] for intensive outpatient treatment in the past. She had reported a history of numerous medication trials including Effexor, lamotrigine, Zoloft, Prozac, Adderall, Vyvanse, and Concerta. She reports that most of her medication management for mental health has been managed by her primary care physicians at the time. She has reported attending psych[facility] before [facility] the [facility] and privately. Substance abuse history: She denies any substance use other than occasional use of Sativa THC. Medical history: Unspecified back pain, vitamin D deficiency, history of iron deficiency anemia, hypothyroidism Surgical history: Endometrial ablation, history of tubal ligation and Allergies: Buspirone cyclobenzaprine and Adderall all described as having caused acute dysphoria and depression. Legal history: None history: None Family psychiatric history: Polysubstance abuse?mother, depression?father, depression?sister Social history: Patient was born in [facility] and raised there by her biological parents who when the patient was 16. She had reported having an unhappy childhood but did not endorse any history of sexual physical or emotional abuse. She reports having 2 siblings. She reports no problems with learning in her childhood. She graduated high school but did not attend college. She states twice and is currently . She reports she has been and that she had worked in [place] through the [employer] system for nearly 29 years until an incident had occurred in local [place] in [place] that led to her leaving there. She currently lives in [facility] having moved here 2 years ago. Hospital Course Hospital Course She slowly acclimated to the individual, group and milieu therapies. She presented with suicidal ideation, depression and s/sx consistent with ADHD. Recent job loss and poor relationships led to her feeling unsafe. We initiated ritalin for ADHD and recommended Concerta when she discharges as the hospital does not carry the extended formulation and also cymbalta was started without incident. However she did stop taking the Cymbalta reporting that she did not like the way it made her feel. The initiation of the medication as well as the treatment milieu led to a positive response. She worked with the social work team for appropriate outpatient resources. She showed significant improvement during the hospitalization and was able to contract for safety, outside of the hospital prior to discharge. During the hospitalization, patient had routine laboratory studies which were within normal limits except for few outliers. Additionally there was a general medical evaluation which was also within normal limits and revealed no new acute processes.. Discharge Summary: At the time of discharge, she denied psychosis or lethality. Mood and anxiety were well managed. Patient endorsed a plan to avoid all drugs of abuse and follow-up with the aftercare recommendations of the treatment team. Patient was evaluated and deemed to be absent credible lethality, and had achieved the maximum benefit from an inpatient hospitalization, so was discharged. Involuntary Hold Information Hold Status: Legal Status: 96 Hour Hold Date/Time Hold Expires: 04/13/25@ 00:01 Mental Status Exam MSE Comments: She is a casually dressed female who appears her stated age with fair eye contact and normal gait who was pacing. There was no evidence of any abnormal involuntary motor movements, tics, or tremors appreciated. There was evidence of moderate psychomotor retardation. Her speech was normal in regards to rate rhythm and prosody. Her mood was described as better. Her affect was congruent. Her thought process is linear, logical and goal-directed. Her thought content revealed no active homicidal or suicidal ideation, there were no delusions reported or noted, she denied any auditory visual hallucination. Attention and concentration were intact and memory appear to be reliable but no more formally tested. She was alert and oriented to person, place, time, and situation. Her insight is limited. Her judgment is poor. Her impulse control appeared guarded. Discharge Data Studies Completed and Pending: Laboratory Results WBC 3.71 10^3/uL (3.2 9-11.43) 04/11/25 06:54 RBC 4.15 10^6/uL (3.8 5-5.65) 04/11/25 06:54 Hgb 13.10 g/dL (11.27 -16.99) 04/11/25 06:54 Hct 39.5 % (36-47) 04/11/25 06:54 MCV 95.2 fl (85-98) 04/11/25 06:54 MCH 31.6 pg (27-33) 04/11/25 06:54 MCHC 33.2 g/dL (30-55) 04/11/25 06:54 RDW 12.2 % (12.1-15.1 ) 04/11/25 06:54 Plt Count 246 10^3/cmm (157 -399) 04/11/25 06:54 MPV 9.3 fL (7.4-10.4) 04/11/25 06:54 Neut % (Auto) 43.1 % 04/11/25 06:54 Lymph % (Auto) 41.0 % 04/11/25 06:54 [place] % (Auto) 10.2 % 04/11/25 06:54 Eos % (Auto) 4.6 % 04/11/25 06:54 Baso % (Auto) 1.1 % 04/11/25 06:54 Neut # (Auto) 1.60 10^3/uL (1.8 -7.7) L 04/11/25 06:54 Lymph # (Auto) 1.5 10^3/uL (0.8- 4.8) 04/11/25 06:54 [place] # (Auto) 0.4 10^3/uL (0.2- 0.9) 04/11/25 06:54 Eos # (Auto) 0.2 10^3/uL (0.0- 0.8) 04/11/25 06:54 Baso # (Auto) 0.0 10^3/uL (0.0- 0.1) 04/11/25 06:54 Nucleated RBC % (a uto) 0 % 04/11/25 06:54 Nucleated RBCs # 0.0 /100WBC 04/11/25 06:54 Sodium 140 mmol/L (136-1 45) 04/11/25 06:54 Potassium 4.5 mmol/L (3.5-5 .1) 04/11/25 06:54 Chloride 103 mmol/L (98-10 7) 04/11/25 06:54 Carbon Dioxide 28 mmol/L (22-29) 04/11/25 06:54 Anion Gap 13.5 (5-19) 04/11/25 06:54 BUN 8 mg/dL (6-20) 04/11/25 06:54 Creatinine 0.7 mg/dL (0.5-0. 9) 04/11/25 06:54 GFR Calculation 87.2 mL/min (90-1 30) L 04/11/25 06:54 Glucose 78 mg/dL (65-115) 04/11/25 06:54 Calculated Osmolal ity 287 mOsm/kg (285- 295) 04/11/25 06:54 Calcium 9.3 mg/dL (8.5-10 .5) 04/11/25 06:54 Total Bilirubin 0.2 mg/dL (0.15-1 .2) 04/11/25 06:54 AST 17 U/L (0-32) 04/11/25 06:54 ALT 19 U/L (0-33) 04/11/25 06:54 Alkaline Phosphata se 61 U/L (35-105) 04/11/25 06:54 Total Protein 6.5 g/dL (6.6-8.7 ) L 04/11/25 06:54 Albumin 4.0 g/dL (3.5-5.2 ) 04/11/25 06:54 Globulin 2.5 g/dL (1.3-4.6 ) 04/11/25 06:54 25-OH Vitamin D To snehal 24 ng/mL (30-100) L 04/11/25 06:54 Salicylates < 0.3 mg/dL (3-10 ) L 04/06/25 09:30 Acetaminophen < 5.0 ug/mL (10-3 0) L 04/06/25 09:30 Vitals: Last Vital Signs Temp 98.9 F 04/12/25 06:00 Pulse 70 04/12/25 06:00 Resp 16 04/12/25 06:00 BP 90/58 04/12/25 06:00 Pulse Ox 97 04/12/25 06:00 O2 Del Method Room Air 04/12/25 06:00 Discharge Plan Discharge Patient Disposition: Home Condition: Stable Prescriptions: New methylphenidate HCl 10 mg Tablet 5 mg PO 0800,1200,1500 30 Days Qty: 45 0RF Continued omeprazole 20 mg capsule,delayed release(DR/EC) 20 mg PO DAILY multivitamin Tablet 1 tab PO DAILY Nitro-Bid 2 % ointment See Rx Instructions .ROUTE .COMPLEX Qty: 30 0RF Dose Instruction: APPLY ONE INCH TO SKIN TWICE DAILY Rx Instructions: APPLY ONE INCH TO SKIN TWICE DAILY spironolactone 100 mg tablet 100 mg PO DAILY 30 Days Qty: 30 1RF levothyroxine 50 mcg capsule 50 mcg PO DAILY 30 Days Qty: 30 1RF Discontinued fluoxetine [Prozac] 10 mg capsule 10 mg PO DAILY Discharge Order = DC NOW: Discharge Order (Routine); Ordered 04/12/25 Ordered By: Anson Magdaleno Referrals: [facility], PUBLIC BATH ATTENDANT,RETAIL WIRELESS SALES REPRESENTATIVE [Other] - 05/15/25 2:00 pm Referral Note: Therapy appointment. [facility] [Outside] - 04/18/25 7:30 am Referral Note: Initial appointment with Shikha on Wednesday04/18/25 at 8:00 am with 7:30 am check in. Bridget Sheridan MD [Primary Care Provider, [facility]] Discharge Diet: Regular Discharge Activity: Resume usual activity Patient Instructions: Methylphenidate, Regular and Slow Release (By mouth) (Ritalin,..., Help Prevent Suicide (DC), Suicide Prevention (DC), Opioid Safety, Patient Portal & [employer] Instructions Discharge Attestations NPU Time Spent in Discharge Care*: less than 30 min Specific Discharge Activities: Specific discharge activities: educating patient, discussing with pillowcase cleaner/social workers/dc planners, documenting/other paperwork and evaluating patient/reviewing data Coding Level of Care Code Acute Code for Chg Fwd Diagnoses Major depressive disorder, recurrent severe without psychotic features F33.2 SHELLI (generalized anxiety disorder) F41.1 Raynauds disease I73.00
[2025-04-12 12:00] VITALS: BP 90/58; PULSE 70; RESP 16; TEMP 37.2; O2SAT 100
== END 2025-04-12 13:33 | disposition home or self-care (01) | DRG 885 ==
LOC: ER 10:37 → NP 11:03
PROVIDERS: Admitting Provider Psychiatry & Neurology Psychiatry; Emergency Provider Family Medicine; PCP Family Medicine; Visit Provider Psychiatry & Neurology Psychiatry
DX: F33.2 Major depressive disorder, recurrent severe without psychotic features (principal); R45.851 Suicidal ideations; F41.1 Generalized anxiety disorder; F90.9 Attention-deficit hyperactivity disorder, unspecified type; I73.00 Raynaud's syndrome without gangrene; Z87.891 Personal history of nicotine dependence
CPT/HCPCS: 36415; 80053; 80307; 82306; 85025; 97150; 97165; 99285; J9999